=== PATIENT | female | born 1990 | race Hispanic/Latino ===

== ENCOUNTER → 2016-05-11 | Outpatient (REF) | payer OTHER | LOC: M LAB REF 16:52 | PROVIDERS: ATTEND Physician Assistant | DX: D48.5 Neoplasm of uncertain behavior of skin (principal) ==

== ENCOUNTER → 2016-06-08 | Outpatient (CLI) | payer OTHER | LOC: M SMT 12:54 | PROVIDERS: ATTEND Physician Assistant | DX: Z23 Encounter for immunization (principal) ==

== ENCOUNTER → 2016-10-22 | Outpatient (REF) | payer OTHER ==
[~2016-10-22] MED LIST: MIRA33504 PO; MULT1TAB10 PO
== END ==
LOC: M LAB REF 13:13
PROVIDERS: ATTEND Advanced Practice Midwife
DX: Z12.4 Encounter for screening for malignant neoplasm of cervix (principal)

== ENCOUNTER → 2016-11-14 | Outpatient (CLI) | payer OTHER ==
[2016-11-14 13:32] LABS: FREE T4 1.08 NG/DL (0.76-1.46)
== END ==
LOC: M LAB 11:46
PROVIDERS: ATTEND Internal Medicine Gastroenterology
DX: K58.1 Irritable bowel syndrome with constipation (principal)

== ENCOUNTER 2016-12-14 13:30 | Outpatient (CLI) | payer OTHER ==
[~2016-12-14] VITALS: Ht 165.1 cm; Wt 60.3 kg
[2016-12-14] MEDS ORDERED: NS 1,000 ML IV ONE (13:45)
[2016-12-14 14:19] LABS: CONTROL LINE UCG INT CTR LINE PRESENT
--- NOTE | 2016-12-14 15:31 | ROOR ---
Patient Name: Norma Gómez Procedure Date: 12/14/2016 3:13 PM Date of : 1990 Age: 26 Room: [facility] Gender: Female Note Status: Finalized Procedure: Colonoscopy Indications: Generalized abdominal pain, Irritable bowel syndrome with constipation, Constipation Providers: Deonte MOSQUEDA MD Referring MD: Rufina GUTIERREZ DO Requesting Provider: Medicines: Monitored Anesthesia Care Complications: No immediate complications. Procedure: Pre-Anesthesia Assessment: - The heart rate, respiratory rate, oxygen saturations, blood pressure, adequacy of pulmonary ventilation, and response to care were monitored throughout the procedure. The Colonoscope was introduced through the anus and advanced to 4 cm into the ileum. The colonoscopy was performed without difficulty. The patient tolerated the procedure well. The quality of the bowel preparation was good. Findings: The perianal and digital rectal examinations were normal. The colon (entire examined portion) appeared normal. The terminal ileum appeared normal. Small Internal Hemorrhoids. Impression: - The entire colon is normal. - The examined portion of the ileum was normal. - Small Internal Hemorrhoids. - No specimens collected. Recommendation: - Miralax 1 capful (17 grams) in 8 ounces of water twice a day. If ineffective, go to 2 capfuls (34 grams) twice a day. Deonte Mosqueda MD Deonte MOSQUEDA MD 12/14/2016 3:31:05 PM This report has been signed electronically. Number of Addenda: 0 Note Initiated On: 12/14/2016 3:13 PM Estimated Blood Loss: Estimated blood loss: none.
[2016-12-14 15:51] VITALS: BP 101/62
== END 2016-12-14 15:57 | disposition home or self-care (01) ==
LOC: M OPP 13:30
PROVIDERS: ATTEND Internal Medicine Gastroenterology
DX: R10.84 Generalized abdominal pain (principal); K58.1 Irritable bowel syndrome with constipation; K64.8 Other hemorrhoids; R06.83 Snoring

== ENCOUNTER → 2017-03-19 | Outpatient (CLI) | payer OTHER ==
[2017-03-19 12:48] LABS: BASO % 0.2 % (0.0-1.0); EOS # 0.1 10^3/uL (0.0-0.50); IMMATURE GRANULOCYTE % 0.3 % (0-0); LYMPH # 1.5 10^3/uL (1.5-6.5); LYMPH % 24.4 % (24.0-44.0); MEAN CORPUSCULAR HEMOGLOBIN 30.4 pg (27.0-33.0); MEAN CORPUSCULAR HGB CONC 33.6 g/dl (32.0-36.5); MEAN CORPUSCULAR VOLUME 90.3 fl (80.0-96.0); MONO # 0.5 10^3/uL (0.0-0.8); MONO % 8.1 % (0.0-5.0); NEUTROPHILS # 3.9 10^3/uL (1.8-7.7); PLATELET COUNT, AUTOMATED 229 10^3/uL (150-450); RED CELL DISTRIBUTION WIDTH 12.4 % (11.5-14.5); WHITE BLOOD COUNT 5.9 10^3/uL (4.0-10.0)
[2017-03-20 10:18] LABS: HBsAg Prenatal NEGATIVE (NEGATIVE)
== END ==
LOC: M SMT 09:58
PROVIDERS: ATTEND Specialist
DX: Z36.89 Encounter for other specified antenatal screening (principal); Z3A.12 12 weeks gestation of pregnancy

== ENCOUNTER 2017-04-11 08:50 | Emergency (ER) | payer OTHER ==
[2017-04-11] MEDS: PENICILLIN V POTASSIUM 250 MG TAB PO (09:00)
[2017-04-11] MEDS ORDERED: PENICILLIN V POTASSIUM 500 MG TAB PO (09:15)
== END 2017-04-11 09:25 | disposition home or self-care (01) ==
LOC: M ED 08:50
DX: O99.512 Diseases of the respiratory system complicating pregnancy, second trimester (principal); J02.9 Acute pharyngitis, unspecified; Z3A.16 16 weeks gestation of pregnancy
CPT/HCPCS: 87880

== ENCOUNTER → 2017-05-07 | Outpatient (CLI) | payer OTHER | LOC: M LRY 13:27 | DX: Z34.82 Encounter for supervision of other normal pregnancy, second trimester (principal) ==

== ENCOUNTER → 2017-06-15 | Outpatient (CLI) | payer OTHER ==
[2017-06-15 10:38] LABS: BASO % 0.3 % (0.0-1.0); EOS % 0.4 % (0.0-3.0); HEMATOCRIT 32.5 % (36.0-47.0); HEMOGLOBIN 10.9 g/dl (12.0-16.0); IMMATURE GRANULOCYTE % 0.5 % (0-3.0); LYMPH # 1.6 10^3/uL (1.5-6.5); LYMPH % 20.9 % (24.0-44.0); MEAN CORPUSCULAR HEMOGLOBIN 32.3 pg (27.0-33.0); MEAN CORPUSCULAR HGB CONC 33.5 g/dl (32.0-36.5); MEAN CORPUSCULAR VOLUME 96.4 fl (80.0-96.0); MONO # 0.7 10^3/uL (0.0-0.8); MONO % 8.3 % (0.0-5.0); NEUTROPHILS # 5.5 10^3/uL (1.8-7.7); NEUTROPHILS % 69.6 % (36.0-66.0); PLATELET COUNT, AUTOMATED 200 10^3/uL (150-450); RED BLOOD COUNT 3.37 10^6/uL (4.00-5.40); RED CELL DISTRIBUTION WIDTH 12.8 % (11.5-14.5); WHITE BLOOD COUNT 7.8 10^3/uL (4.0-10.0)
[2017-06-15 10:53] LABS: GLUCOSE CHALLENGE TEST 1 HOUR 104 MG/DL (LESS THAN 140)
[2017-06-17 09:31] LABS: RH ONLY RHOGAM 1 1
== END ==
LOC: M LAB 09:13
DX: Z34.82 Encounter for supervision of other normal pregnancy, second trimester (principal)

== ENCOUNTER → 2017-08-28 | Outpatient (REF) | payer OTHER | LOC: M LAB REF 12:57 | DX: Z34.83 Encounter for supervision of other normal pregnancy, third trimester (principal) ==

== ENCOUNTER 2017-09-20 14:31 | Inpatient (IN) | payer OTHER ==
[2017-09-20] MEDS ORDERED: LR 1,000 ML IV (16:33)
[2017-09-20] MEDS: LACTATED RINGER'S 1000 ML IV (16:54)
[2017-09-20 17:11] LABS: HEMATOCRIT 33.8 % (36.0-47.0); HEMOGLOBIN 11.3 g/dl (12.0-15.5); MEAN CORPUSCULAR HEMOGLOBIN 30.7 pg (27.0-33.0); MEAN CORPUSCULAR HGB CONC 33.4 g/dl (32.0-36.5); MEAN CORPUSCULAR VOLUME 91.8 fl (80.0-96.0); PLATELET COUNT, AUTOMATED 213 10^3/uL (150-450); RED BLOOD COUNT 3.68 10^6/uL (4.00-5.40); RED CELL DISTRIBUTION WIDTH 13.1 % (11.5-14.5); WHITE BLOOD COUNT 7.3 10^3/uL (4.0-10.0)
[2017-09-20] MEDS: OXYTOCIN DRIP 30 UNITS in APPROPRIATE DILUENT 1 EA IV (17:48)
[2017-09-20] MEDS ORDERED: FENTANYL 2MCG/ML ROPIVACAINE 0.2% IN 0.9% NACL 200ML IVBAG As Ordered (20:26)
[2017-09-20] MEDS ORDERED: diphenhydrAMINE INJ 50MG/ML VIAL (J1200) IV (21:15)
[2017-09-20] MEDS ORDERED: EPIDURAL COMMENT XX (21:15)
[2017-09-20] MEDS ORDERED: FENTANYL/ROPIVACAINE/NACL BAG 200 ML EPIDURAL (21:15)
[2017-09-20] MEDS ORDERED: ONDANSETRON 4MG/2ML VIAL (J2405) IV (21:15)
[2017-09-20] MEDS ORDERED: REFRIGERATOR IV KEYS XX (21:15)
[2017-09-20] MEDS ORDERED: NALOXONE INJ 0.4 MG/1 ML VIAL (J2310) IV (21:15)
[2017-09-20] MEDS ORDERED: EPIDURAL/PCA KEYS XX (21:15)
[2017-09-20 23:53] LABS: CORD GAS ABE V -9.1; CORD GAS HCO3 V 17.6 MEQ/L; CORD GAS O2 SAT V 71.7 %; CORD GAS PCO2 V 40.9 mmHg; CORD GAS PH V 7.251 UNITS; CORD GAS PO2 V 35.8 mmHg; CORD GAS SBC V 16.7 MEQ/L; CORD GAS TCO2 V 18.8 MEQ/L
[2017-09-20 23:55] LABS: CORD GAS ABE A -12.3; CORD GAS HCO3 A 18.5 MEQ/L; CORD GAS O2 SAT A 63.6 %; CORD GAS PCO2 A 62.2 mmHg; CORD GAS PH A 7.092 UNITS; CORD GAS PO2 A 34.8 mmHg; CORD GAS SBC A 14.5 MEQ/L; CORD GAS TCO2 A 20.4 MEQ/L
[2017-09-21] MEDS ORDERED: MOM 30ML SUSPENSION UDC PO (00:15)
[2017-09-21] MEDS ORDERED: MEASLES,MUMPS,RUBELLA VACCINE INJ (MMR-II) (90707) SC (00:15)
[2017-09-21] MEDS ORDERED: RHOGAM 300 MCG (1500 IU) INJ (J2790) IM (00:15)
[2017-09-21] MEDS ORDERED: DIBUCAINE 1% OINTMENT 30GM TOP (00:15)
[2017-09-21] MEDS: METHYLERGONOVINE MALEATE 0.2 MG TAB PO ×4 (00:40→17:50)
[2017-09-21] MEDS: ACETAMINOPHEN 500 MG TAB PO ×2 (02:53→21:26)
[2017-09-21] MEDS: PRENATAL VITAMINS CHEWABLE TABLET PO (09:51)
[2017-09-21] MEDS ORDERED: MAALOX 30 ML SUSP *UDC PO (15:45)
[2017-09-21] MEDS: SIMETHICONE 80 MG CHEW TAB PO (15:58)
[2017-09-21] MEDS: IBUPROFEN 800 MG TAB PO (17:51)
[2017-09-21] MEDS: DOCUSATE SODIUM 100 MG CAP PO (21:27)
[2017-09-22] MEDS: METHYLERGONOVINE MALEATE 0.2 MG TAB PO ×2 (01:12→06:15)
[2017-09-22] MEDS: PRENATAL VITAMINS CHEWABLE TABLET PO (08:06)
== END 2017-09-22 14:10 | disposition home or self-care (01) | DRG 775 ==
LOC: M LDO 14:31 → M OBS 09-21 02:06 → M LDI 16:29
PROVIDERS: Advanced Practice Midwife
PROC: 0W8NXZZ Division of Female Perineum, External Approach (ICD-10-PCS; principal; 2017-09-20)
PROC: 10907ZC Drainage of Amniotic Fluid, Therapeutic from Products of Conception, Via Natural or Artificial Opening (ICD-10-PCS; 2017-09-20)
DX: O76 Abnormality in fetal heart rate and rhythm complicating labor and delivery (principal); Z37.0 Single live birth; Z3A.39 39 weeks gestation of pregnancy; R33.9 Retention of urine, unspecified

== ENCOUNTER → 2018-05-27 | Outpatient (REF) | payer OTHER ==
[~2018-05-27] MED LIST changes: +ACET-683 PO; +CEPA5.4L2 MT; +IBUP-1022 PO; +IBUP-1114 PO; +PENI250T57 PO; +PRENTAB7 PO; +TYLE325T5 PO
== END ==
LOC: M SFHCLERA 13:25
PROVIDERS: ATTEND Physician Assistant
DX: J02.9 Acute pharyngitis, unspecified (principal)